=== PATIENT | male | born 1980 | race African-American/Black ===

== ENCOUNTER 2023-12-05 16:21 | Emergency (ER) | payer MEDICAID, OTHER ==
[~2023-12-05] VITALS: Ht 185.4 cm; Wt 100.0 kg
[2023-12-05 16:24] VITALS: O2SAT 97
[2023-12-05] MEDS: SODIUM CHLORIDE 0.9% 1,000 ML IV ONE (16:44)
[2023-12-05] MEDS: ONDANSETRON HCL 4MG/2ML INJ IV STA (16:46)
[2023-12-05] MEDS: FENTANYL CITRATE/PF 50MCG/ML 2ML VIAL IV STA (16:50)
[2023-12-05] MEDS: CEFAZOLIN 1000MG PREMIX 50 ML IV ONE (17:05)
[2023-12-05 17:07] LABS: BASOPHILS % 0.7 % (0.0-2.0); EOSINOPHILS % 2.7 % (0.0-5.0); HEMATOCRIT. 45.7 % (42.0-52.0); LYMPHOCYTES % 28.9 % (20.0-50.0); MEAN CORPUSCULAR HEMOGLOBIN 30.7 pg (28.0-32.0); MEAN CORPUSCULAR HGB CONC 32.9 g/dL (31.0-37.0); MEAN CORPUSCULAR VOLUME 93.5 fL (80.0-94.0); MONOCYTES % 9.5 % (2.0-8.0); NEUTROPHILS % 58.2 % (40.0-76.0); PLATELET 306 x1000/uL (130-400); RED BLOOD CELL COUNT 4.89 mill/uL (4.7-6.1); RED CELL DISTRIBUTION WIDTH 15.5 % (11.6-14.6); WHITE BLOOD COUNT 7.4 x1000/uL (4.5-11.0)
[2023-12-05 17:11] LABS: CHLORIDE 109 mEq/L (98-107); POTASSIUM 3.6 mEq/L (3.5-5.1); SODIUM 141 mEq/L (136-145)
[2023-12-05 17:12] LABS: CARBON DIOXIDE 23 mEq/L (21-32)
[2023-12-05 17:13] LABS: CALCIUM 9.2 mg/dL (8.7-10.4)
[2023-12-05 17:16] LABS: INR 0.9; PARTIAL THROMBOPLASTIN TIME 24.4 sec (23.4-31.0); PROTHROMBIN TIME 10.5 sec (9.6-11.0)
[2023-12-05 17:17] LABS: CREATININE 1.3 mg/dL (0.6-1.3); GLUCOSE 89 mg/dL (70-105); UREA NITROGEN BLOOD 6 mg/dL (9-23)
[2023-12-05] MEDS ORDERED: CEPH500T MT (19:24)
[2023-12-05] MEDS ORDERED: OXYC-100 MT (19:24)
[2023-12-05 20:15] VITALS: BP 145/82; PULSE 87; RESP 20; TEMP 36.83628; O2SAT 98
[2023-12-05] MEDS ORDERED: IOHEXOL-350 100 ML BOTTLE ONE (23:29)
== END 2023-12-05 20:20 | disposition home or self-care (01) ==
LOC: ER 16:21
DX: S71.132A Puncture wound without foreign body, left thigh, initial encounter (principal); W34.00XA Accidental discharge from unspecified firearms or gun, initial encounter; Y93.89 Activity, other specified; Y92.89 Other specified places as the place of occurrence of the external cause; Y99.8 Other external cause status
CPT/HCPCS: 80048; 83690; 85025; 85610; 85730; 86850; 86900; 86901; 36415; 72170; 75635; 93976; 76870; 96365; 96375; 99291; J3010; Q9967; J0690; J2405; J7030; Z7610